=== PATIENT | male | born 1945 ===

== ENCOUNTER → 2023-12-20 16:16 | Outpatient (ROUT) | payer OTHER, SELFPAY ==
[2023-12-20 16:28] LABS: Add Manual Diff / Slide Review NO; Basophils Absolute Auto 0 /uL (0-100); Basophils Percent Auto 0.4 % (0-2); Eosinophils Absolute Auto 200 /uL (0-450); Eosinophils Percent Auto 3.4 % (2-4); Hematocrit 34.4 % (41-53); Hemoglobin 11.7 g/dL (13.5-17.5); Lymphocytes Absolute Auto 900 /uL (1100-4500); Lymphocytes Percent Auto 13.4 % (25-40); Mean Corpuscular HGB Conc 33.9 % (30-36); Mean Corpuscular Hemoglobin 31.5 PG (26-34); Mean Corpuscular Volume 93.1 fL (80-100); Monocytes Absolute Auto 600 /uL (0-900); Monocytes Percent Auto 8.4 % (3-14); Neutrophils Absolute Auto 5200 /uL (1500-7000); Neutrophils Percent Auto 74.4 % (50-75); Platelet Count 366 X10^3/uL (150-400); Red Cell Distribution Width 13.6 % (11.6-14.8)
[2023-12-20 16:37] LABS: BUN Creatinine Ratio 16.9 (6-22); Blood Urea Nitrogen 11 mg/dL (9-20); C-Reactive Protein Quant 0.7 mg/dL (<1.0); Calcium 8.9 mg/dL (8.4-10.2); Carbon Dioxide 28 mmol/L (22-32); Chloride 95 mmol/L (98-107); Estimated Glomerular Filt Rate > 60 mL/min (>60); Glucose 84 mg/dL (80-110); HEMOLYSIS 21 (0-50); Potassium 4.4 mmol/L (3.4-5.1); Sodium 129 mmol/L (137-145)
[2023-12-20 17:00] LABS: Erythrocyte Sedimentation Rate 19 MM/HR (0-15)
== END ==
PROVIDERS: PCP Registered Nurse; Visit Provider Internal Medicine Infectious Disease
DX: L02.11 Cutaneous abscess of neck (principal); T81.49XA Infection following a procedure, other surgical site, initial encounter
CPT/HCPCS: 80048; 85025; 85651; 86140

== ENCOUNTER → 2023-12-27 15:42 | Outpatient (ROUT) | payer OTHER, SELFPAY ==
[2023-12-27 15:49] LABS: Add Manual Diff / Slide Review NO; Basophils Absolute Auto 0 /uL (0-100); Basophils Percent Auto 0.6 % (0-2); Eosinophils Absolute Auto 300 /uL (0-450); Eosinophils Percent Auto 4.2 % (2-4); Hematocrit 34.7 % (41-53); Hemoglobin 11.5 g/dL (13.5-17.5); Lymphocytes Absolute Auto 1000 /uL (1100-4500); Lymphocytes Percent Auto 17.5 % (25-40); Mean Corpuscular HGB Conc 33.3 % (30-36); Mean Corpuscular Hemoglobin 31.5 PG (26-34); Mean Corpuscular Volume 94.8 fL (80-100); Monocytes Absolute Auto 500 /uL (0-900); Monocytes Percent Auto 9.2 % (3-14); Neutrophils Absolute Auto 4100 /uL (1500-7000); Neutrophils Percent Auto 68.5 % (50-75); Platelet Count 377 X10^3/uL (150-400); Red Blood Cell Count 3.66 X10^6/uL (4.5-5.9); Red Cell Distribution Width 13.8 % (11.6-14.8); White Blood Cell Count 5.9 X10^3/uL (4.5-11.0)
[2023-12-27 16:51] LABS: Erythrocyte Sedimentation Rate 17 MM/HR (0-15)
[2023-12-27 17:03] LABS: BUN Creatinine Ratio 17.2 (6-22); Blood Urea Nitrogen 11 mg/dL (9-20); C-Reactive Protein Quant < 0.5 mg/dL (<1.0); Calcium 8.5 mg/dL (8.4-10.2); Carbon Dioxide 24 mmol/L (22-32); Chloride 95 mmol/L (98-107); Estimated Glomerular Filt Rate > 60 mL/min (>60); Glucose 88 mg/dL (80-110); HEMOLYSIS < 15 (0-50); Potassium 4.2 mmol/L (3.4-5.1); Sodium 127 mmol/L (137-145)
== END ==
PROVIDERS: PCP Registered Nurse; Visit Provider Internal Medicine Infectious Disease
DX: L02.11 Cutaneous abscess of neck (principal); T81.49XA Infection following a procedure, other surgical site, initial encounter
CPT/HCPCS: 80048; 85025; 85651; 86140

== ENCOUNTER → 2024-01-03 18:02 | Outpatient (ROUT) | payer OTHER, SELFPAY ==
[2024-01-03 18:50] LABS: Add Manual Diff / Slide Review NO; Basophils Absolute Auto 0 /uL (0-100); Basophils Percent Auto 0.4 % (0-2); Eosinophils Absolute Auto 200 /uL (0-450); Eosinophils Percent Auto 3.2 % (2-4); Hematocrit 33.8 % (41-53); Hemoglobin 11.5 g/dL (13.5-17.5); Lymphocytes Absolute Auto 800 /uL (1100-4500); Mean Corpuscular HGB Conc 33.9 % (30-36); Mean Corpuscular Hemoglobin 32.4 PG (26-34); Mean Corpuscular Volume 95.6 fL (80-100); Monocytes Absolute Auto 600 /uL (0-900); Monocytes Percent Auto 11.1 % (3-14); Neutrophils Absolute Auto 4000 /uL (1500-7000); Neutrophils Percent Auto 71.3 % (50-75); Platelet Count 327 X10^3/uL (150-400); Red Blood Cell Count 3.54 X10^6/uL (4.5-5.9); Red Cell Distribution Width 14.1 % (11.6-14.8); White Blood Cell Count 5.5 X10^3/uL (4.5-11.0)
[2024-01-03 19:31] LABS: Erythrocyte Sedimentation Rate 17 MM/HR (0-15)
== END ==
PROVIDERS: PCP Registered Nurse; Visit Provider Internal Medicine Infectious Disease
DX: L02.11 Cutaneous abscess of neck (principal); T81.49XA Infection following a procedure, other surgical site, initial encounter
CPT/HCPCS: 85025; 85651